=== PATIENT | female | born 1950 | race American Indian/Alaskan Native ===

== ENCOUNTER 2019-06-08 09:05 | Outpatient (CLI) | payer MEDICARE, OTHER ==
--- NOTE | 2019-06-08 13:55 | Mammography Report ---
DEXA BONE DENSITY SCAN INDICATION: POST-MENOPAUSAL/ AT RISK FOR OSTEOPOROSIS. COMPARISON: None available. LUMBAR SPINE (L1-L4): Bone mineral density (BMD) is 0.715 g/cm2. T-score is -4.0 (standard deviations of Young Adult mean). Z-score is -1.6 (standard deviations of Age Matched mean). LEFT FEMORAL NECK: Bone mineral density (BMD) is 0.786 g/cm2. T-score is -1.6 (standard deviations of Young Adult mean). Z-score is -0.4 (standard deviations of Age Matched mean). IMPRESSION: 1. WHO Classification: Osteoporosis. Fracture Risk: High. Signer Name: Jacque Costa MD Signed: 06/08/2019 1:50 PM Workstation Name: [id number]
--- NOTE | 2019-06-08 14:11 | Mammography Report ---
DIGITAL SCREENING MAMMOGRAM WITH CAD, 06/08/2019 INDICATION: Routine screening mammography. TECHNIQUE: Digital bilateral 2D mammography was obtained in the craniocaudal and mediolateral obliq ue projections. This examination was interpreted with the benefit of Computer-Aided Detection analysi s. COMPARISON: None available at this time. FINDINGS: Breast Density: The breasts are heterogeneously dense, which may obscure small masses. There is no evidence of dominant mass, suspicious calcifications or architectural distortion in eithe r breast. However, there is vague focal asymmetry in the upper outer quadrant of the right breast whi ch I suspect will represent normal fibroglandular tissue. However prior mammograms are being requeste d for direct comparison. If no prior mammograms are obtained within 3 weeks, right breast spot compre ssion imaging and possibly right breast ultrasound will be recommended to further evaluate this findi ng. IMPRESSION: Questionable focal asymmetry in the right breast, upper outer quadrant. I suspect this wi ll represent normal fibroglandular tissue, but attempt should be made to compare with prior outside m ammogram. We will request prior mammograms from [facility]. BI-RADS Category 0: Incomplete. Needs additional imaging evaluation and/or prior mammograms for hafsa rison. A "normal" or negative report should not discourage follow up or biopsy of a clinically significant f inding. A written summary of these findings will be mailed to the patient. The patient will be entered into a mammography reporting system which will generate a reminder letter for the patient's next appointmen t at the appropriate interval. The [employer] recommends yearly mammograms starting at age 40 and continuing as l gina as a woman is in good health. Breast MRI is recommended for women with an approximate 20-25% or greater lifetime risk of breast cancer, including women with a strong family history of breast or ova minor cancer or who have been treated for Hodgkin's disease. Signer Name: Jacque Costa MD Signed: 06/08/2019 2:07 PM Workstation Name: [id number]
== END 2019-06-08 09:06 | disposition home or self-care (01) ==
LOC: SPVWC 09:05
PROVIDERS: ATTEND Family Medicine
DX: Z12.31 Encounter for screening mammogram for malignant neoplasm of breast (principal); M81.0 Age-related osteoporosis without current pathological fracture; Z78.0 Asymptomatic menopausal state; Z91.89 Other specified personal risk factors, not elsewhere classified
CPT/HCPCS: 77067; 77080

== ENCOUNTER 2019-07-08 11:11 | Outpatient (CLI) | payer MEDICARE, OTHER ==
--- NOTE | 2019-07-08 12:42 | Mammography Report ---
RIGHT DIGITAL DIAGNOSTIC MAMMOGRAM INDICATION: Recall for asymmetry. TECHNIQUE: Digital right mammographic imaging was performed. COMPARISON: 06/08/2019 FINDINGS: Breast Density: The breast is heterogeneously dense, which may obscure small masses. Lateral medial, exaggerated CC and spot compression CC views were performed and are negative. No remaining asymmetry. IMPRESSION: No mammographic evidence of malignancy. BI-RADS Category 1: Negative. Recommend routine screening mammography in one year. A "normal" or negative report should not discourage follow up or biopsy of a clinically significant f inding. A written summary of these findings will be mailed to the patient. The patient will be entered into a mammography reporting system which will generate a reminder letter for the patient's next appointmen t at the appropriate interval. FURTHER INFORMATION: According to the [employer], yearly mammograms are recommend ed starting at age 40 and continuing as long as a woman is in good health. Breast MRI is recommended for women with an approximately 20-25% or greater lifetime risk of breast cancer, including women wi th a strong family history of breast or ovarian cancer and women who have been treated for Hodgkin's disease. Signer Name: Jack Fuchs MD Signed: 07/08/2019 12:37 PM Workstation Name: [id number]
== END 2019-07-08 11:12 | disposition home or self-care (01) ==
LOC: SPVWC 11:11
PROVIDERS: ATTEND Family Medicine
DX: R92.8 Other abnormal and inconclusive findings on diagnostic imaging of breast (principal)

== ENCOUNTER 2020-10-10 14:19 | Outpatient (CLI) | payer MEDICARE, OTHER ==
--- NOTE | 2020-10-10 18:20 | Mammography Report ---
DIGITAL SCREENING MAMMOGRAM WITH CAD, 10/10/2020 CLINICAL INFORMATION / INDICATION: Routine screening mammography. TECHNIQUE: Digital bilateral 2D mammography was obtained in the craniocaudal and mediolateral obliqu e projections. This examination was interpreted with the benefit of Computer-Aided Detection analysis . COMPARISON: 06/08/2019 FINDINGS: Breast Density: The breasts are heterogeneously dense, which may obscure small masses. No dominant mass, suspicious calcifications, or architectural distortion in either breast. Overall, no interval change. IMPRESSION: No mammographic evidence of malignancy. Follow up recommendation: Routine yearly BI-RADS Category 1: Negative. A "normal" or negative report should not discourage follow up or biopsy of a clinically significant f inding. A written summary of these findings will be mailed to the patient. The patient will be entered into a mammography reporting system which will generate a reminder letter for the patient's next appointmen t at the appropriate interval. The [employer] recommends yearly mammograms starting at age 40 and continuing as l gina as a woman is in good health. Breast MRI is recommended for women with an approximate 20-25% or greater lifetime risk of breast cancer, including women with a strong family history of breast or ova minor cancer or who have been treated for Hodgkin's disease. Signer Name: Jacque Costa MD Signed: 10/10/2020 6:16 PM Workstation Name: [id number]
== END 2020-10-10 14:20 | disposition home or self-care (01) ==
LOC: SPVWC 14:19
PROVIDERS: ATTEND Family Medicine
DX: Z12.31 Encounter for screening mammogram for malignant neoplasm of breast (principal)
CPT/HCPCS: 77067